=== PATIENT | male | born 1995 | race African-American/Black ===

== ENCOUNTER 2025-10-10 14:05 | Emergency (ER) | payer OTHER ==
[~2025-10-10] VITALS: Ht 188 cm; Wt 72.6 kg
[2025-10-10 14:10] VITALS: BP 130/82; TEMP 98.4; O2SAT 95
[2025-10-10] MEDS ORDERED: IBUPROFEN 400 MG TABLET ONE (14:51)
[2025-10-10] MEDS: IBUPROFEN 400 MG TABLET PO ONE (15:00)
[2025-10-10] MEDS: MUPIROCIN OINT 2% 22 GM TUBE TP ONE (16:15)
[2025-10-10] MEDS ORDERED: MUPIROCIN OINT 2% 22 GM TUBE ONE (16:31)
== END 2025-10-10 17:03 | disposition home or self-care (01) ==
LOC: ER 14:10
DX: S90.811A Abrasion, right foot, initial encounter (principal); S90.511A Abrasion, right ankle, initial encounter; Z59.00 Homelessness unspecified; W01.0XXA Fall on same level from slipping, tripping and stumbling without subsequent striking against object, initial encounter; Y93.89 Activity, other specified; Y92.89 Other specified places as the place of occurrence of the external cause; Y99.9 Unspecified external cause status
CPT/HCPCS: 99284; 73610; 73630; 73590; A6403